=== PATIENT | female | born 1940 | race Caucasian/White ===

== ENCOUNTER 2024-01-29 00:46 | Inpatient (IN) | payer MEDICARE, BC, SELFPAY ==
[2024-01-29] VITALS (32 sets, daily range): BP systolic 105–164; BP diastolic 42–85; PULSE 79–105; RESP 16–38; TEMP 36.4–36.6; O2SAT 94–100
--- NOTE | ~2024-01-29 | CT_ITS ---
Clinical Indication: Trauma CT Scan of the Chest, Abdomen, and Pelvis, thoracic spine, and lumbar spine with Contrast: Technique: Contiguous sections were acquired throughout the chest, abdomen, and pelvis after intraven ous administration of 100 cc of Omnipaque 350. Dose reduction technique was used on this scan by uti moisesing automated exposure control and iterative reconstruction technique. The dose-length product (DL P) was 1238.34 mGy-cm. Chest/abdomen/pelvis Findings: There is no evidence of any significant mediastinal, hilar or axillary lymphadenopathy. The mediastin al soft tissues and vascular structures appear normal. There is no evidence of pleural or pericardial effusion. Suspected mild to moderate emphysema, although there is respiratory motion artifact which limits eval uation. No pulmonary nodule identified. The liver, spleen, pancreas, adrenals and kidneys are within normal limits. Calcified gallstones are present. There are atherosclerotic calcifications of the aorta. No lymphadenopathy. No bowel obstruction or bowel wall thickening. There is no evidence to suggest acute appendicitis. Urinary bladder is unremarkable. No pelvic mass seen. No ascites. Thoracolumbar spine findings: There is no fracture or subluxation of the thoracic or lumbar spines. Vertebral bodies maintain norm al height and line. There is moderate degenerative disc narrowing at the mid to lower thoracic spine. There is moderate degenerative disc narrowing at L3-L4, L4-L5. No significant disc bulge or herniation clearly identified in the thoracic spine. No thoracic spinal canal stenosis or cord compression evident. At L1-L2, there is minimal disc bulge without canal stenosis or definite neural foraminal narrowing. At L2-L3, there is mild disc bulge and mild facet arthropathy. No definite central canal stenosis. Pr obable moderate right neural foraminal narrowing and minimal left neural foraminal narrowing. L3-L4, there is mild disc bulge and mild facet arthropathy. There is probable mild central canal sten osis. There is moderate to advanced bilateral neural foraminal narrowing. At L4-L5, there is disc bulge and facet arthropathy with probable moderate to possibly severe central canal stenosis. There is advanced bilateral neural foraminal narrowing. At L5-S1, there is minimal disc bulge. No central canal stenosis. There is probable severe bilateral neural foraminal narrowing, right worse than left. Impression: No acute abnormality seen. Suspected moderate emphysema versus respiratory motion artifact. Cholelithiasis. Degenerative changes in the lumbar spine, as detailed above. Reviewed, dictated and finalized at location M. Impression: No acute abnormality seen. Suspected moderate emphysema versus respiratory motion artifact. Cholelithiasis. Degenerative changes in the lumbar spine, as detailed above.
--- NOTE | ~2024-01-29 | XR_ITS ---
Portable chest x-ray Comparison: None Clinical History: Status post fall Findings: Possible COPD. No acute consolidation or pleural effusion. No pneumothorax. Cardiomediast inal silhouette is prominent. Cervical spinal fixation hardware noted. Impression: Suspected COPD. Mild cardiomegaly. Reviewed, dictated and finalized at location . Impression: Suspected COPD. Mild cardiomegaly.
--- NOTE | ~2024-01-29 | XR_ITS ---
AP and lateral views of the right femur Clinical History: Pain Findings: No acute fracture or dislocation is seen. Osseous alignment is anatomic. Visualized joint s paces are grossly preserved. Soft tissues are unremarkable. Impression: Unremarkable right femoral radiographs. Reviewed, dictated and finalized at location M. Impression: Unremarkable right femoral radiographs.
--- NOTE | ~2024-01-29 | CT_ITS ---
Noncontrast CT scan of the cervical spine Technique: Multiple contiguous axial [address] images of the cervical spine were obtained and rec onstructed in 2D sagittal and coronal planes on the acquisition scanner. Dose reduction technique was used on this scan by utilizing automated exposure control, adjustment of the mA and/or kV according to patient size. The dose-length product (DLP) was 351.91 mGy-cm. Clinical History: Pain Findings: No fractures or dislocations. There is anterior fusion from C3 through C6. There are sever e degenerative disc narrowing at C2-C3 and C6-C7. There is fusion of the left C3-C4 facet joint. Ther e are moderate to advanced facet joint degenerative changes in the remainder of the cervical spine. T here is bilateral neural foraminal narrowing at C3-C4, C4-C5, C5-C6, and probably C6-C7. There is pro bable mild canal stenosis at C4-C5, C5-C6, and C6-C7. No prevertebral soft tissue swelling. Impression: No fracture or subluxation of the cervical spine. Anterior fusion from C3 through C6. Moderate to advanced degenerative spondylosis, as above. Reviewed, dictated and finalized at location . Impression: No fracture or subluxation of the cervical spine. Anterior fusion from C3 through C6. Moderate to advanced degenerative spondylosis, as above.
--- NOTE | ~2024-01-29 | XR_ITS ---
AP view of the pelvis CLINICAL HISTORY: Pain Findings: No acute fracture or dislocation is seen. Osseous alignment is anatomic. Bilateral hip and SI joint spaces are preserved. Soft tissues are unremarkable. Impression: No significant abnormality is seen. Reviewed, dictated and finalized at location M. Impression: No significant abnormality is seen.
--- NOTE | ~2024-01-29 | US_ITS ---
Limited Abdominal Sonogram: Real-time sonographic imaging of the right upper quadrant was performed. Clinical History: Cholelithiasis, evaluate for acute cholecystitis Findings: The liver appears normal with no evidence of mass lesion or bile duct dilatation. Main por hugh vein demonstrates normal direction of flow. The gallbladder is well distended, and demonstrates 1 8 mm gallstone at the gallbladder neck. No definite gallbladder wall thickening. The common bile duct measures 4 mm. The visualized pancreas, aorta, and IVC are unremarkable. Impression: Cholelithiasis. No definite gallbladder wall thickening. If there is persistent clinical concern for acute cholecystitis, consider HIDA scan. Reviewed, dictated and finalized at location . Impression: Cholelithiasis. No definite gallbladder wall thickening. If there is persistent clinical concern for acute cholecystitis, consider HIDA scan.
--- NOTE | ~2024-01-29 | XR_ITS ---
EXAMINATION: XR chest 1V portable DATE: 02/01/2024 10:02 INDICATION: Acute onset severe midsternal chest pain TECHNIQUE: frontal view of the chest was obtained. COMPARISON: Chest radiograph and CT dated 01/29/24 FINDINGS: Skinfold projects of the right upper lung zone. Mild reticular opacities at the bilateral lower lung zones no pleural effusion or pneumothorax.. The cardiomediastinal silhouette is within normal limits for AP technique. Multilevel plate and screw fixation for mid to lower cervical anterior spinal fusio n. IMPRESSION: 1. Mild reticular opacities at the bilateral lung bases most likely atelectasis with differential inc luding mild pulmonary edema or pneumonia. Reviewed, dictated and finalized at location A. IMPRESSION: 1. Mild reticular opacities at the bilateral lung bases most likely atelectasis with differential including mild pulmonary edema or pneumonia.
--- NOTE | ~2024-01-29 | MR_ITS ---
EXAMINATION: MR brain/brain stem wo/w con DATE: 01/30/2024 11:46 INDICATION: Altered mental status. TECHNIQUE: Magnetic resonance imaging (MRI) of the brain and brainstem was performed without and with 15 mL MultiHance intravenous contrast. COMPARISON: Head CT 01/29/2024 FINDINGS: There are scattered areas of nonspecific increased T2-weighted signal intensity in the cere bral white matter and seda. There is no intracranial hemorrhage, acute infarction, or abnormal intrac ranial mass lesion. The ventricles are normal in size. The paranasal sinuses are clear. There are lik karolyn changes of ocular lens replacement surgeries. There is a trace left mastoid effusion. IMPRESSION: 1. Extensive nonspecific cerebral white matter disease and pontine disease, which likely represents c hronic small vessel ischemic disease. Reviewed, dictated and finalized at location A. IMPRESSION: 1. Extensive nonspecific cerebral white matter disease and pontine disease, whi ch likely represents chronic small vessel ischemic disease.
--- NOTE | ~2024-01-29 | CT_ITS ---
CT brain wo con Ordering provider: Luisa Cronin MD History: 83 years Female with . altered mental status . Comparison: January 29, 2024 Technique: CT of the head without contrast. Radiation reduction technique utilized. DLP is 681 mGy-cm. FINDINGS: BRAIN PARENCHYMA AND CSF SPACES: Moderate leukoaraiosis and diffuse cortical atrophy. Moderate athero matous disease. Old lacunar infarct in the right basal ganglia. Possible old infarcts in the right an d left anterior limb of the internal capsule unchanged from previous examination.. No midline shift, mass effect or hemorrhage. The brain parenchyma and CSF spaces are otherwise normal. VISUALIZED PARANASAL SINUSES: Well aerated. MASTOIDS: Well aerated. BONES: The bones appear intact. SOFT TISSUES: Visualized nasopharynx is normal. Superficial soft tissues are normal. IMPRESSION: No acute intracranial findings. Reviewed, dictated and finalized at location A.
--- NOTE | ~2024-01-29 | CT_ITS ---
CT head without contrast Indication: Status post fall Technique: Serial scans were obtained through the brain without the administration of contrast. Dose reduction technique was used on this scan by utilizing automated exposure control and iterative recon struction technique. The dose-length product (DLP) was 681.00 mGy-cm. Findings: There is no evidence of intracranial hemorrhage, mass lesion, or acute infarct. The ventri cles and subarachnoid spaces are dilated, consistent with mild atrophy. Extensive low attenuation reg ions are seen within the periventricular white matter bilaterally, likely representing changes from c hronic microvascular ischemic disease. There is no evidence of edema, mass effect or midline shift. The visualized paranasal sinuses and mastoid air cells are clear. Impression: No intracranial hemorrhage, mass, or acute infarct. Atrophy and chronic white matter changes, as above. Reviewed, dictated and finalized at location . Impression: No intracranial hemorrhage, mass, or acute infarct. Atrophy and chronic white matter changes, as above.
--- NOTE | 2024-01-29 01:35 | ECG_ITS ---
Test Date: 2024-01-29 02:04:48 Measurements Intervals [place] Rate: 83 P: 64 DC: 209 QRS: 28 QRSD: 118 T: 92 QT: 370 QTc: 437 Interpretive Statements SINUS RHYTHM INCOMPLETE LEFT BUNDLE BRANCH BLOCK BORDERLINE R WAVE PROGRESSION, ANTERIOR LEADS BORDERLINE ST-T WAVE ABNORMALITY- LAT/HIGH LAT LEADS BASELINE ARTIFACT- I, III, AVR, AVL, AVF, V1, V5 ABNORMAL ECG No previous ECG available for comparison Electronically Signed On 01-29-2024 06:10:13 CDT by Dex Scherer D.O.
--- NOTE | 2024-01-29 01:37 | ED.HEATRA ---
HPI - Head Injury General Chief complaint: Head Injury Stated complaint: FALL, UNKNOWN LOC, HEAD LAC Time Seen by Provider: 01/29/24 00:54 History of Present Illness HPI Narrative: 83-year-old female with a past medical history of CHF, chronic hypertension, COPD and AFib. She is not present on blood thinners on review of the medications that she was sent in from [facility]. Patient had a ground level mechanical fall today while she was trying to get out of bed. Unclear if she lost consciousness but when EMS arrived she was noted to be saturating low complaining of some pain in her head and neck. She has a posterior scalp hematoma with a small laceration. Was saturating poorly initially placed on oxygen which improved to 100%. Presently she is alert oriented times 2-3 which is her baseline on review by staff paperwork from her facility. She is complaining of neck pain, back pain, abdominal pain, right hip pain. Denies any chest pain or headache, vision changes. No weakness and neuropathy. Following all commands and answer all questions appropriately. Related Data Allergies Allergy/AdvReac Type Severity Reaction Status Date / Time No Known Allergies Allergy Verified 01/29/24 02:31 Review of Systems Review of Systems: As reviewed above in HPI Exam Narrative: GENERAL: [Well-appearing, well-nourished, and in no acute distress.] HEAD: Normocephalic, posterior scalp hematoma evident with a minor 1 cm laceration in the superficial tissues. No significant wound dehiscence or active bleeding. EYES: [PERRLA and EOMI.] ENT: Nares clear, no rhinorrhea or epistaxis. Mucous membranes moist. NECK: Supple. CHEST: Clear to auscultation, minor tachypnea but no wheezing, rhonchi. HEART: [Regular rate and rhythm]. No murmur heard. 2+ peripheral pulses throughout all extremities. ABDOMEN: [Soft, nondistended], tender to palpation, [No rigidity or guarding] EXTREMITIES: Normal range of motion. [No edema.] Superficial bruises appearing old throughout both extremities upper and lower SKIN: Warm, dry, no rash. No CT or L-spine tenderness NEURO: [No focal deficits]. Alert and oriented times 2-3 at baseline. Symmetric strength and sensation, no facial asymmetry Course Vital Signs Vital signs: Vital Signs Temperature 36.6 C 01/29/24 00:52 Pulse Rate 87 01/29/24 00:52 Respiratory Rate 22 H 01/29/24 00:52 Blood Pressure 164/83 H 01/29/24 00:52 Pulse Oximetry 100 01/29/24 00:52 Oxygen Delivery Room Air 01/29/24 00:52 Temperature 36.6 C 01/29/24 00:52 Pulse Rate 85 01/29/24 05:40 Respiratory Rate 22 H 01/29/24 05:40 Blood Pressure 163/85 H 01/29/24 05:40 Pulse Oximetry 100 01/29/24 05:40 Oxygen Delivery BiPAP 01/29/24 05:10 Procedures Laceration Laceration 1: Date: 01/29/24 Time: 02:24 Site: scalp Side (If applicable): right Size (cm): 1 Description: linear Local Anesthetic: none Pre-repair: irrigated ====== Skin Level ====== Skin layer closed with: dermabond ====== Subcutaneous Layer ====== ====== Muscle Layer ====== ====== Tendon Layer ====== MDM - Head Injury MDM Narrative Medical decision making narrative: 83-year-old female presenting for an unwitnessed fall. Patient states that she fell out of bed while trying to get out of bed. She hit her head but is not sure if she lost consciousness. Per report by EMS patient was apparently saturating poorly on room air. She has a history of COPD, CHF and chronic hypertension. She also has a history of AFib but not on a blood thinner medications. Presently she is awake alert oriented at her baseline which is 2-3. Patient is complaining of abdomen, neck, right hip pain. She appears to be tachypneic, but has normal reassuring vital signs. Presently not hypoxic or feverish or having blood pressure concerns across from chronic hypertension. Examinatio
[2024-01-29] MEDS: LACTATED RINGERS 1,000 ML 999 ML IV CONT (02:32)
[2024-01-29] MEDS: MORPHINE SULFATE (*CRX) 4 MG/ML INJ IV PUSH (02:32)
[2024-01-29 02:46] LABS: Basophils Absolute Auto 0.1 K/mm3 (0.0-0.1); Basophils Percent Auto 0.3 % (0.2-1.2); Eosinophils Absolute Auto 0.5 K/mm3 (0-0.3); Eosinophils Percent Auto 2.4 % (0-4.4); Hematocrit 31.4 % (37.0-47.0); Hemoglobin 9.8 g/dL (12.0-15.0); Immature Granulocyte Absolute 0.51 K/mm3 (0.00-0.031); Immature Granulocyte Percent A 2.7 % (0-0.5); Lymphocytes Absolute Auto 1.44 K/mm3 (0.9-3.2); Lymphocytes Percent Auto 7.6 % (18.3-44.2); Mean Corpuscular HGB Conc 31.2 g/dl (32-36); Mean Corpuscular Hemoglobin 32.5 pg (26-34); Mean Platelet Volume 10.3 fl (7.4-10.4); Monocytes Absolute Auto 1.2 K/mm3 (0.1-0.6); Monocytes Percent Auto 6.3 % (2.6-8.5); Neutrophils Absolute Auto 15.3 K/mm3 (1.3-6.7); Neutrophils Percent Auto 80.7 % (45.5-73.1); Platelet Count Result 297 k/mm3 (150-375); Red Blood Count 3.02 M/mm3 (4.2-5.4)
[2024-01-29] MEDS: TETANUS,DIPHTHERIA,AC PERTUSSIS ADULT (0.5 ML) BOOSTRIX IM (02:50)
[2024-01-29] MEDS: ONDANSETRON INJ 4 MG/2 ML VIAL IV PUSH (02:51)
[2024-01-29 02:57] LABS: INR 0.9; Prothrombin Time 12.8 Seconds (11.1-14.7)
[2024-01-29 02:58] LABS: Partial Thromboplastin Time 21.2 Seconds (22.3-36.8)
[2024-01-29 03:09] LABS: Blood Urea Nitrogen 17 mg/dL (7-17); Carbon Dioxide > 40 mmol/L (22-30); Chloride 89 mmol/L (98-107); Estimated CRCL calculation 40 ml/min; Estimated Glomerular Filt Rate 60; Glucose 123 mg/dL (65-110); Magnesium 2.5 mg/dL (1.6-2.3); Potassium 4.1 mmol/L (3.4-5.0); Sodium 133 mmol/L (137-145)
[2024-01-29] MEDS: IPRATROPIUM BR 0.02% INH SOLN 0.5 MG/2.5 ML VIAL 1 MG INHALATION (05:10)
[2024-01-29] MEDS: ALBUTEROL SULFATE NEB 2.5 MG/3 ML INH 10 MG INHALATION (05:10)
[2024-01-29 05:38] LABS: Add Urine Microscopic? NO; Appearance Urine Clear (Clear); Bilirubin Urine Negative (Negative); Blood Urine Negative (Negative); Color Urine Yellow (Yellow); Glucose Urine UA Negative (Negative); Ketones Urine Negative (Negative); Leukocyte Esterase Ur Negative LEU/UL (Negative); Nitrate Urine Negative (Negative); Protein Urine Negative (Negative); Specific Grav Ur 1.021 (1.001-1.035); Urobilinogen Urine 0.2 mg/dL (<2.0); pH Urine 8.5 (5.0-9.0)
[2024-01-29] MEDS: methylPREDNISolone SOD SUCC 125 MG VIAL IV PUSH (05:44)
[2024-01-29 05:47] LABS: Alveolar/Arterial O2 Gradient 94.6 mmHg; Base Excess ABG 9.7 mEq/l (+/-2.0); Carboxyhemoglobin 0.4 % THb (0-2.0); Fractional Inspired Oxygen 35 %; HCO3 ABG 37.4 mEq/l (22.0-26.0); Oxygen Saturation ABG 93.5 % (95.0-100.0); Oxyhemoglobin 93.4 % THb (90.0-100.0); PO2 ABG 73.8 mmHg (80.0-100.0); PO2 FiO2 Ratio Arterial Blood 2.11 %; Reduced Hemoglobin 6.2 %THb (0-5.0); Total Hemoglobin 10.6 g/dL (12.0-18.0); pH ABG 7.347 (7.350-7.450)
[2024-01-29 05:48] LABS: Device NON-INVASIVE VENT; PCO2 ABG 69.8 mmHg (35.0-45.0); Site Drawn RIGHT BRACHIAL
[2024-01-29 05:50] LABS: Non-Invasive Expiratory Pressure 6 CMH2O; Non-Invasive Inspiratory Pressure 12 CMH2O; Non-Invasive Vent Rate 16 /MIN
--- NOTE | 2024-01-29 06:13 | PC.NURSE ---
Granddaughters (one POA) at bedside. Family reports pt was at her baseline of aox4 at 5pm and 7pm night of 01/27. Family also reports pt has hx of COPD and to be on 3L NC at all times.
--- NOTE | 2024-01-29 07:18 | ADMGEN ---
0658: This patient, Lyndsey Jensen, was admitted to IMU Room 202-01. Patient/family oriented to hospital policies and general routines including ID bracelet, bed and alarms, visiting hours, pain management, procedures, bathroom and other care routines, personal items, smoking policy, room service/diet, and visiting hours. Information on how to activate the Rapid Response Team has been discussed. Patient/Family are encouraged to report perceived risks to care and to ask questions if they do not understand what they are told or what they should do.
--- NOTE | 2024-01-29 07:43 | PM.IMHP ---
H&P: HPI History of Present Illness Date/Time: 01/29/24 07:43 Chief Complaint: Fall Narrative: Patient is confused, history is taken from patient and ER physician 83-year-old female with a past medical history of CHF, chronic hypertension, COPD and AFib not on blood thinner, brought to ED from [facility] because of fall. Patient fell on the floor when patient was moving out of bed, patient sustained neck pain, headache. Patient also has some abdomen pain, back pain and hip pain Patient was found having head bleeding. Patient did not loss consciousness. EMS was called, patient was brought to ED for evaluation treatment. Upon arrival in the ED, patient was found have occipital scalp hematoma. Upon arrival in ED, patient was afebrile, blood pressure stable, patient was placed on BiPAP. Labs showed leukocytosis 19,000, hemoglobin 9.8, sodium 133, bicarbonate 40, ABG shows pH 7.34, pCO2 69.8, PO2 73.[address] cervical spine shows no fracture or subluxation CT chest abdomen pelvis shows moderate emphysema, gallstone. X-ray shows mild cardiomegaly in a suspected COPD . Review of Systems Review of Systems: ROS negative except above PMFSH Social History Social History Smoking packs per day: 2 Smoking cigarettes per day: 40.0 Years smoked: 15 Smoking pack-years: 30.00 Smoking status: Former smoker Spiritual care concerns: No Meds Home Medications and Allergies Home Medications Medication Instructions Recorded Confirmed Type albuterol sulfate 90 mcg/actuation 2 puff inhalation Q4H 01/29/24 01/29/24 History aerosol inhaler allopurinol 100 mg tablet 100 mg PO DAILY 01/29/24 01/29/24 History duloxetine 30 mg capsule,delayed 30 mg PO DAILY 01/29/24 01/29/24 History release ferrous gluconate 324 mg (38 mg 324 mg PO DAILY 01/29/24 01/29/24 History iron) tablet furosemide 20 mg tablet 20 mg PO DAILY 01/29/24 01/29/24 History levalbuterol HCl 0.31 mg/3 mL 3 mg inhalation Q8H PRN sob 01/29/24 01/29/24 History solution for nebulization lorazepam 1 mg tablet 1 mg PO BID PRN Anxiety 01/29/24 01/29/24 History metoprolol succinate 25 mg 25 mg PO POST-TRANSFUSION 01/29/24 01/29/24 History tablet,extended release 24 hr roflumilast 250 mcg tablet 250 mcg PO DAILY 01/29/24 01/29/24 History sennosides 8.6 mg tablet (senna) 8.6 mg PO BID PRN Constipation 01/29/24 01/29/24 History umeclidinium 62.5 mcg-vilanterol 1 inh inhalation DAILY 01/29/24 01/29/24 History 25 mcg/actuation powdr for inhalation (Anoro Ellipta) Allergies Allergy/AdvReac Type Severity Reaction Status Date / Time sulfamethoxazole Allergy Unknown Verified 01/29/24 06:48 [From Bactrim] trimethoprim [From Bactrim] Allergy Unknown Verified 01/29/24 06:48 Vital Signs Vital Signs - 24 hr 01/29/24 00:52 01/29/24 05:10 01/29/24 05:10 Temperature 97.9 F Pulse Rate 87 89 88 Respiratory Rate 22 H 23 H 23 H Blood Pressure 164/83 H Pulse Oximetry 100 96 Oxygen Delivery Room Air BiPAP Fraction of Inspired Oxygen 01/29/24 05:40 01/29/24 06:49 01/29/24 06:58 Temperature 97.8 F Pulse Rate 85 88 89 Respiratory Rate 22 H 16 23 H Blood Pressure 163/85 H 138/71 148/63 H Pulse Oximetry 100 98 100 Oxygen Delivery Fraction of Inspired Oxygen 01/29/24 07:00 01/29/24 07:00 01/29/24 07:37 Temperature Pulse Rate 90 86 Respiratory Rate 22 H Blood Pressure Pulse Oximetry 96 96 Oxygen Delivery BiPAP BiPAP Fraction of Inspired Oxygen 35 01/29/24 06:57 Temperature Pulse Rate 88 Respiratory Rate 16 Blood Pressure 138/71 Pulse Oximetry 98 Oxygen Delivery Fraction of Inspired Oxygen Exam Narrative: GENERAL: Pleasant, in no acute distress. Well-nourished. - EYES: EOMI. Anicteric. - HENT: Moist mucous membranes. Occipital hematoma - LUNGS: Distant breath sound bilaterally, no wheezing, rhonchi, or rales.
[2024-01-29 08:00] LABS: Glucose Point of Care 113 mg/dl (65-105)
[2024-01-29 08:00] LABS: Glucose Point of Care 121 mg/dl (65-105)
[2024-01-29 08:54] LABS: Iron 51 ug/dL (37-170)
[2024-01-29 09:04] LABS: Percent Iron Saturation 21 % (20-50)
[2024-01-29 09:34] LABS: Alveolar/Arterial O2 Gradient 108.7 mmHg; Base Excess ABG 8.6 mEq/l (+/-2.0); Fractional Inspired Oxygen 35 %; HCO3 ABG 35.2 mEq/l (22.0-26.0); Oxygen Content ABG 14.1 %vol (16.0-22.0); Oxygen Saturation ABG 93.8 % (95.0-100.0); Oxyhemoglobin 93.4 % THb (90.0-100.0); PCO2 ABG 59.8 mmHg (35.0-45.0); PO2 ABG 71.3 mmHg (80.0-100.0); PO2 FiO2 Ratio Arterial Blood 2.04 %; Total Hemoglobin 10.7 g/dL (12.0-18.0); pH ABG 7.388 (7.350-7.450)
[2024-01-29 09:35] LABS: Site Drawn RIGHT BRACHIAL
[2024-01-29 09:36] LABS: Device NON-INVASIVE VENT; Non-Invasive Expiratory Pressure 6 CMH2O; Non-Invasive Inspiratory Pressure 12 CMH2O; Non-Invasive Vent Rate 16 /MIN
[2024-01-29] MEDS: levoFLOXacin 750 MG/D5W 150 ML 750 MG/150 ML BAG 100 MG IVPB (09:54)
[2024-01-29 10:37] LABS: Procalcitonin 0.4 ng/mL
[2024-01-29 11:37] LABS: Glucose Point of Care 159 mg/dl (65-105)
[2024-01-29] MEDS: methylPREDNISolone SOD SUCC 125 MG VIAL 60 MG IV PUSH ×2 (13:09→17:32)
[2024-01-29] MEDS: ALBUTEROL SULFATE NEB 2.5 MG/3 ML INH INHALATION ×2 (13:57→19:53)
--- NOTE | 2024-01-29 15:13 | PCPTNOTE ---
PT evaluation attempted, Nursing reports that pt is unable to be aroused and therefore not appropriate to be seen by therapy at this time.
[2024-01-29 15:32] LABS: Glucose Point of Care 124 mg/dl (65-105)
[2024-01-29] MEDS: LORazepam (*CRX) 1 MG TABLET PO (16:48)
[2024-01-29] MEDS: HYDROmorphone HCL INJ (*CRX) 1 MG/ML SYR 0.5 MG IV PUSH (18:56)
[2024-01-30] VITALS (27 sets, daily range): BP systolic 123–142; BP diastolic 50–58; PULSE 72–104; RESP 17–34; TEMP 36.1–36.8; O2SAT 96–100
[2024-01-30 00:05] LABS: Glucose Point of Care 133 mg/dl (65-105)
[2024-01-30] MEDS: methylPREDNISolone SOD SUCC 125 MG VIAL 60 MG IV PUSH ×3 (00:59→13:11)
[2024-01-30] MEDS: ALBUTEROL SULFATE NEB 2.5 MG/3 ML INH INHALATION ×4 (02:07→20:13)
[2024-01-30] MEDS: UMECLIDINIUM/VILANTEROL 62.5-25 MCG ELLIPTA 1 PUFF INHALATION (07:10)
--- NOTE | 2024-01-30 08:34 | PCPTNOTE ---
Pt is being monitored for tolerance to MRI testing, Nursing reports to withhold therapy at this time due to pt's poor tolerance to activity. Will check again later in the day.
[2024-01-30] MEDS: FERROUS GLUCONATE 324 MG TABLET PO (08:35)
[2024-01-30 09:16] LABS: Basophils Percent Auto 0.1 % (0.2-1.2); Hematocrit 31.7 % (37.0-47.0); Hemoglobin 9.9 g/dL (12.0-15.0); Immature Granulocyte Absolute 0.17 K/mm3 (0.00-0.031); Immature Granulocyte Percent A 1.1 % (0-0.5); Lymphocytes Absolute Auto 0.61 K/mm3 (0.9-3.2); Mean Corpuscular HGB Conc 31.2 g/dl (32-36); Mean Corpuscular Hemoglobin 32.6 pg (26-34); Mean Corpuscular Volume 104.3 fl (80-100); Mean Platelet Volume 10.6 fl (7.4-10.4); Monocytes Absolute Auto 0.3 K/mm3 (0.1-0.6); Monocytes Percent Auto 1.6 % (2.6-8.5); Neutrophils Absolute Auto 14.3 K/mm3 (1.3-6.7); Neutrophils Percent Auto 93.2 % (45.5-73.1); Platelet Count Result 286 k/mm3 (150-375); Red Blood Count 3.04 M/mm3 (4.2-5.4); Red Cell Distribution Width 15.1 % (11.5-14.5); White Blood Count 15.3 K/mm3 (4.5-10.0)
[2024-01-30 09:25] LABS: NT Pro B Type Natriuretic Pept 836 pg/mL (19.9-100)
[2024-01-30 09:32] LABS: Alveolar/Arterial O2 Gradient 86.6 mmHg; Base Excess ABG 8.3 mEq/l (+/-2.0); Fractional Inspired Oxygen 30 %; HCO3 ABG 32.1 mEq/l (22.0-26.0); Oxygen Content ABG 13.9 %vol (16.0-22.0); Oxygen Saturation ABG 96.6 % (95.0-100.0); PCO2 ABG 41.2 mmHg (35.0-45.0); PO2 ABG 78.9 mmHg (80.0-100.0); PO2 FiO2 Ratio Arterial Blood 2.63 %; Total Hemoglobin 10.2 g/dL (12.0-18.0)
[2024-01-30 09:33] LABS: Device BIPAP; Modified Allen's Test Pass; Site Drawn RIGHT RADIAL; pH ABG 7.509 (7.350-7.450)
[2024-01-30 09:34] LABS: Expiratory Pressure 6 cmH2O; Inspiratory Pressure 12 cmH2O
[2024-01-30 09:43] LABS: Albumin Level 4.1 g/dL (3.5-5.1); Alkaline Phosphatase 62 U/L (38-126); Anion Gap 11 mmol/L (4-12); Aspartate Amino Transferase 33 U/L (14-36); Bilirubin,Total 0.4 mg/dL (0.2-1.3); Blood Urea Nitrogen 27 mg/dL (7-17); Calcium 9.4 mg/dL (8.4-10.2); Carbon Dioxide 34 mmol/L (22-30); Chloride 88 mmol/L (98-107); Estimated CRCL calculation 36 ml/min; Estimated Glomerular Filt Rate 53; Glucose 126 mg/dL (65-110); Magnesium 2.5 mg/dL (1.6-2.3); Phosphorus 4.3 mg/dL (2.5-4.5); Potassium 4.7 mmol/L (3.4-5.0); Sodium 133 mmol/L (137-145)
[2024-01-30 09:48] LABS: Alanine Aminotransferase 32 U/L (6-35)
[2024-01-30 12:31] LABS: Glucose Point of Care 138 mg/dl (65-105)
--- NOTE | 2024-01-30 14:49 | PM.CNPUL ---
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 Etiology of COPD exacerbation is not quite clear. The patient seems to be responding to current regimen of IV steroids and BiPAP support. Currently she is fully awake not complaining of shortness of breath at rest and her respiratory exam just showing distant breath sounds without wheezing. On chest CT she had no pulmonary emboli or infiltrates that would indicate lower respiratory tract infection. Plan: Will continue with BiPAP support at night and p.r.n. during the day continue with short-acting bronchodilators and and her maintenance bronchodilators as prescribed. I switch patient to oral prednisone starting in a.m.. Will continue to follow the patient along with you. (2) COPD exacerbation: Code(s): J44.1 - Chronic obstructive pulmonary disease with (acute) exacerbation Status: Acute (3) Paroxysmal A-fib: Code(s): I48.0 - Paroxysmal atrial fibrillation Status: Acute (4) Fall: Code(s): W19.XXXA - Unspecified fall, initial encounter Status: Acute History of Present Illness History of Present Illness Consult date: 01/30/24 Chief complaint: acute on chronic hypercapnic respiratory failure Narrative: This 83-year-old female with a history of COPD was brought in after she fell at the alf. The patient stated that she has had COPD for many years and is followed by the pulmonology services at another institution. In addition to COPD, she has a history of congestive heart failure, hypertension, and atrial fibrillation. When evaluated by EMS, she was found to have low oxygen levels. In addition, the patient was complaining of head and neck pain. She had sustained a small laceration on her scalp. She had no fevers or chills. The patient was found to have acute on chronic hypercapnic respiratory failure, with initial blood gases while receiving BiPAP support showing a pH of 7.34, pCO2 of 70, and PO2 of 74. She has COPD, and because of shortness of breath in the alf, she was started on BiPAP support the day before she was brought into the emergency room. The patient has been on home oxygen but not on a home ventilator. She has been using a LABA/LAMA inhaler and short-acting bronchodilators. Chest CT showed no pulmonary embolism. There was evidence of emphysema but no evidence of a lower respiratory tract infection. The patient has been on treatment with IV steroids. Earlier today, repeat blood gases showed improvement of hypercapnic respiratory failure, and the patient was taken off the BiPAP support. Four hours later, the patient remained off the BiPAP with no new respiratory symptoms. She appears fully awake and is not complaining of shortness of breath at rest. She admitted having shortness of breath with activities. The patient is a poor historian and has no clear recollection of the events that prompted the use of BiPAP support in the alf. Review of Systems Review of Systems: All systems reviewed & are unremarkable except as noted in HPI and below (HPI and below) [facility] Social History Social History Smoking packs per day: 2 Smoking cigarettes per day: 40.0 Years smoked: 15 Smoking pack-years: 30.00 Smoking status: Former smoker Spiritual care concerns: No Meds Home Medications and Allergies Home Medications Medication Instructions Recorded Confirmed Type albuterol sulfate 90 mcg/actuation 2 puff inhalation Q4H 01/29/24 01/29/24 History aerosol inhaler allopurinol 100 mg tablet 100 mg PO DAILY 01/29/24
--- NOTE | 2024-01-30 16:46 | PM.IMPN ---
Progress Note: A&P Assessment and Plan (1) Acute and chronic respiratory failure with hypercapnia: Code(s): J96.22 - Acute and chronic respiratory failure with hypercapnia Status: Acute Assessment and Plan: Patient found to have acute on chronic respiratory failure, possible COPD exacerbation. ABG on admission showing 7.35/70/74 on BiPAP. Chest x-ray showing COPD and CMG. Chest CT shows mild to moderate emphysema and no PE. WBC 19K. PCT 0.4. UA clear. BCx NGTD. Patient started on BiPAP. Soul-Medrol, DuoNebs andLevaquin started. Pulmonary consult and appreciate their input. Wean BiPAP to night, naps and prn use. Back down to baseline O2 requirement at 2L. Speech therpay to assess for dysphagia (2) SIRS (systemic inflammatory response syndrome): Code(s): R65.10 - Systemic inflammatory response syndrome (SIRS) of non-infectious origin without acute organ dysfunction Status: Acute Assessment and Plan: Noted with leukocytosis, acute resp failure and tachypnea. Related to above. No PNA or UTI. Levaquin for acute bronchitis. (3) Fall: Code(s): W19.XXXA - Unspecified fall, initial encounter Status: Acute Assessment and Plan: Patient brought in after she fell out of bed. She sustained head injury with posterior scalp hematoma and small laceration that was closed with dermabond. Cervical spine CT showing no fracture or subluxation, anterior fusion of C3-C6 and moderate to advanced spondylosis. Lumber spine CT showing degenerative changes in the lumbar spine with probably moderate-sever central canal stenosis at L4-5. CT head showing no acute findings. 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 Start PT/OT (4) COPD exacerbation: Code(s): J44.1 - Chronic obstructive pulmonary disease with (acute) exacerbation Status: Acute Assessment and Plan: As above Continue home medication of Anoro Ellipta; resume roflumilast when okay with pulmonary (5) Gallstone: Code(s): K80.20 - Calculus of gallbladder without cholecystitis without obstruction Status: Acute Assessment and Plan: There is a 18mm gallstone in the gallbladder neck. No symptoms. Add low fat diet (6) Chronic anemia: Code(s): D64.9 - Anemia, unspecified Status: Acute Assessment and Plan: Macrocytic anemia noted. Hgb low but stable. Iron studies consistent with anemia of chronic disease No liver or spleen abnormalities Ferrous gluconate resumed Check B12/folate (7) Paroxysmal A-fib: Code(s): I48.0 - Paroxysmal atrial fibrillation Status: Acute Assessment and Plan: Patient with pAFib. Not on rate controlling agents of anticoagulation. (8) Spinal stenosis: Code(s): M48.00 - Spinal stenosis, site unspecified Status: Acute Assessment and Plan: Noted by Lumbar CT at L4-5. PTOT ordered (9) Laceration of scalp: Code(s): S01.01XA - Laceration without foreign body of scalp, initial encounter Status: Acute Assessment and Plan: As above (10) Closed head injury: Code(s): S09.90XA - Unspecified injury of head, initial encounter Status: Acute Assessment and Plan: As above Plan Acute encephalopathy on admission. Possible due to CO2 retention and brain concussion due to the fall. Patient is more awake and alert. CT shows no fracture or acute intracranial issue. Neuro check DVT prophylaxis - Lovenox Code status - DNR Subjective Date/time seen: 01/30/24 16:46 Interval history: 83yo female with chronic respiratory failure, COPD and AFib here for fall and found to have respiratory failure. SOB is better. She could not tolerate BiPAP at home. She was trying BiPAP again at the facility but fell out of bed trying to take the mask off. She normally wears 2L around the clock and up to 3L with exertion. No CP. Cough th
[2024-01-30] MEDS: LORazepam (*CRX) 1 MG TABLET PO ×2 (18:19→23:56)
[2024-01-30] MEDS: ENOXAPARIN 40 MG/0.4 ML SYRINGE SUB-Q (18:19)
[2024-01-31] VITALS (24 sets, daily range): BP systolic 112–138; BP diastolic 53–68; PULSE 67–119; RESP 18–24; TEMP 36.3–36.7; O2SAT 96–100
[2024-01-31] MEDS: ALBUTEROL SULFATE NEB 2.5 MG/3 ML INH INHALATION ×4 (01:46→20:12)
[2024-01-31 05:30] LABS: Basophils Percent Auto 0.1 % (0.2-1.2); Hemoglobin 8.6 g/dL (12.0-15.0); Immature Granulocyte Absolute 0.14 K/mm3 (0.00-0.031); Lymphocytes Percent Auto 9.7 % (18.3-44.2); Mean Corpuscular HGB Conc 30.7 g/dl (32-36); Mean Corpuscular Hemoglobin 31.4 pg (26-34); Mean Corpuscular Volume 102.2 fl (80-100); Mean Platelet Volume 10.7 fl (7.4-10.4); Monocytes Absolute Auto 1.2 K/mm3 (0.1-0.6); Monocytes Percent Auto 8.7 % (2.6-8.5); Neutrophils Absolute Auto 10.8 K/mm3 (1.3-6.7); Neutrophils Percent Auto 80.5 % (45.5-73.1); Platelet Count Result 255 k/mm3 (150-375); Red Blood Count 2.74 M/mm3 (4.2-5.4); Red Cell Distribution Width 15.3 % (11.5-14.5); White Blood Count 13.5 K/mm3 (4.5-10.0)
[2024-01-31 05:42] LABS: Anion Gap 4 mmol/L (4-12); Blood Urea Nitrogen 28 mg/dL (7-17); Carbon Dioxide 39 mmol/L (22-30); Chloride 92 mmol/L (98-107); Estimated CRCL calculation 35 ml/min; Estimated Glomerular Filt Rate 53; Glucose 102 mg/dL (65-110); Sodium 135 mmol/L (137-145)
[2024-01-31 06:45] LABS: Folic Acid 4.7 ng/mL (2.76->20)
[2024-01-31] MEDS: UMECLIDINIUM/VILANTEROL 62.5-25 MCG ELLIPTA 1 PUFF INHALATION (07:49)
[2024-01-31] MEDS: predniSONE 20 MG, predniSONE 10 MG 30 MG PO (08:30)
[2024-01-31] MEDS: FERROUS GLUCONATE 324 MG TABLET PO (08:30)
[2024-01-31] MEDS: ENOXAPARIN 40 MG/0.4 ML SYRINGE SUB-Q (08:30)
[2024-01-31] MEDS: levoFLOXacin 750 MG/D5W 150 ML 750 MG/150 ML BAG 100 MG IVPB (08:31)
--- NOTE | 2024-01-31 10:15 | PCSTNOTE ---
Please refer to the Bedside Swallow Evaluation in the EMR. Please note, silent aspiration cannot be ruled out at bedside.
[2024-01-31] MEDS: SENNOSIDES 8.6 MG TABLET PO (10:19)
--- NOTE | 2024-01-31 12:34 | PM.PNPUL ---
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 The etiology of the COPD exacerbation is not quite clear. The patient has responded to treatment with IV steroids and BiPAP support. She has been tolerating supplemental oxygen via nasal cannula during the day and BiPAP support at night. On physical exam, she has distant breath sounds but no wheezing. Given her advanced COPD and hypercapnic hypoxemic respiratory failure, for which she is only receiving supplemental oxygen and not BiPAP support, the patient may benefit from home ventilatory support via a home ventilator. This approach could potentially offer several advantages over BiPAP, as it is designed to provide more tailored support for patients with chronic respiratory failure, and can also help improve patient comfort and minimize the rate of hospitalizations due to exacerbations. Plan: Proceed with home ventilatory support. Continue the current regimen of short-acting bronchodilators, oral steroids, and DVT prophylaxis. Continue to follow the patient along with you. (3) Paroxysmal A-fib: Code(s): I48.0 - Paroxysmal atrial fibrillation Status: Acute Subjective Date/time seen: 01/31/24 12:34 Interval history: Patient has no new respiratory symptoms. Use BiPAP support last night. Currently on just supplemental oxygen. Shortness of breath unchanged over the last 24 hours. No cough or wheezing. Review of Systems Review of Systems: All systems reviewed & are unremarkable except as noted in HPI and below ( HPI and below) Exam Narrative: GENERAL APPEARANCE: Well developed, well nourished, alert and cooperative, and appears to be in no acute distress while on supplemental oxygen via nasal cannula SKIN: Inspection of the skin reveals no rashes, ulcerations or petechiae. HEENT: Sclerae anicteric and conjunctivae pink and moist. Extraocular movements were intact and pupils were equal, round, and reactive to light. The oral mucosa, hard and soft palate, tongue and posterior pharynx were normal. NECK: Supple. There was no thyroid enlargement, and no tenderness, or masses were felt. CHEST: Normal AP diameter and normal contour without any kyphoscoliosis. LUNGS: Somewhat distant breath sounds no wheezing CARDIAC: There was a regular rate and rhythm without any murmurs, gallops, rubs. ABDOMEN: Soft and nontender with normal bowel sounds. There was no organomegaly. LYMPH NODES: No lymphadenopathy was appreciated in the neck. EXTREMITIES: No cyanosis, clubbing or edema. NEUROLOGIC: Alert and oriented x 3. Normal affect. Objective Data Vital Signs Vital Signs: Vital Signs - 24 hr 01/30/24 14:00 01/30/24 14:22 01/30/24 13:05 Temperature Pulse Rate 104 H 94 Respiratory Rate 18 Blood Pressure Pulse Oximetry Oxygen Delivery Nasal Cannula Oxygen Flow Rate 3 Fraction of Inspired Oxygen 01/30/24 13:15 01/30/24 16:00 01/30/24 16:00 Temperature 36.1 C L Pulse Rate 92 92 88 Respiratory Rate 18 22 H Blood Pressure 124/54 L Pulse Oximetry 96 Oxygen Delivery Oxygen Flow Rate Fraction of Inspired Oxygen 01/30/24 16:00 01/30/24 18:00 01/30/24 19:46 Temperature 36.6 C Pulse Rate 91 88 Respiratory Rate Blood Pressure 127/58 L Pulse Oximetry 96 96 Oxygen Delivery Nasal Cannula Oxygen Flow Rate 2 Fraction of Inspired Oxygen 01/30/24 20:13 01/30/24 20:13 01/30/24 20:21 Temperature Pulse Rate 86 Respiratory Rate 18 Blood
[2024-01-31] MEDS: LORazepam (*CRX) 1 MG TABLET PO ×2 (14:33→21:38)
--- NOTE | 2024-01-31 15:24 | PM.IMPN ---
Progress Note: A&P Assessment and Plan (1) Acute and chronic respiratory failure with hypercapnia: Code(s): J96.22 - Acute and chronic respiratory failure with hypercapnia Status: Acute Assessment and Plan: Patient found to have acute on chronic respiratory failure from COPD exacerbation. ABG on admission showing 7.35/70/74 on BiPAP. Chest x-ray showing COPD and CMG. Chest CT shows mild to moderate emphysema and no PE. WBC 19K. PCT 0.4. UA clear. BCx NGTD. Patient started on BiPAP. Soul-Medrol, DuoNebs and Levaquin started. Pulmonary consult and appreciate their input. Weaned BiPAP to night, naps and prn use. Back down to baseline O2 requirement at 2L. Speech therapy assessed patient and there were no concerns. Weaned to oral Prednisone Discharge planning (2) SIRS (systemic inflammatory response syndrome): Code(s): R65.10 - Systemic inflammatory response syndrome (SIRS) of non-infectious origin without acute organ dysfunction Status: Acute Assessment and Plan: Noted with leukocytosis, acute resp failure and tachypnea. Related to above. No PNA or UTI. Levaquin for acute bronchitis. (3) Fall: Code(s): W19.XXXA - Unspecified fall, initial encounter Status: Acute Assessment and Plan: Patient brought in after she fell out of bed. She sustained head injury with posterior scalp hematoma and small laceration that was closed with dermabond. Cervical spine CT showing no fracture or subluxation, anterior fusion of C3-C6 and moderate to advanced spondylosis. Lumber spine CT showing degenerative changes in the lumbar spine with probably moderate-sever central canal stenosis at L4-5. CT head showing no acute findings. 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 Continue PT/OT (4) COPD exacerbation: Code(s): J44.1 - Chronic obstructive pulmonary disease with (acute) exacerbation Status: Acute Assessment and Plan: As above Continue home medication of Anoro Ellipta (5) Gallstone: Code(s): K80.20 - Calculus of gallbladder without cholecystitis without obstruction Status: Acute Assessment and Plan: There is a 18mm gallstone in the gallbladder neck. No symptoms. Continue low fat diet (6) Chronic anemia: Code(s): D64.9 - Anemia, unspecified Status: Acute Assessment and Plan: Macrocytic anemia noted. Hgb low but stable. Iron studies consistent with anemia of chronic disease No liver or spleen abnormalities. B12/folate normal Ferrous gluconate resumed (7) Paroxysmal A-fib: Code(s): I48.0 - Paroxysmal atrial fibrillation Status: Acute Assessment and Plan: Patient with pAFib. Not on rate controlling agents of anticoagulation. No evidence of recurrence by tele. (8) Spinal stenosis: Code(s): M48.00 - Spinal stenosis, site unspecified Status: Acute Assessment and Plan: Noted by Lumbar CT at L4-5. PTOT ordered (9) Laceration of scalp: Code(s): S01.01XA - Laceration without foreign body of scalp, initial encounter Status: Acute Assessment and Plan: As above (10) Closed head injury: Code(s): S09.90XA - Unspecified injury of head, initial encounter Status: Acute Assessment and Plan: As above Plan Acute encephalopathy on admission. Possible due to CO2 retention and brain concussion due to the fall. Patient is more awake and alert. CT shows no fracture or acute intracranial issue. Neuro check DVT prophylaxis - Lovenox Code status - DNR Subjective Date/time seen: 01/31/24 15:24 Interval history: 83yo female with chronic respiratory failure, COPD and AFib here for fall and found to have respiratory failure. Wore the mask again last night. No CP. Room spinning dizziness with standing but better when she sat. Exam Narrative: AF 97.9 112/54 85 20 100%
--- NOTE | 2024-01-31 15:27 | PCRCNOTE ---
[facility] SET UP WITH [facility] PAPERWORK FAXED. PT TO GO TO [facility] UPON DISCHARGE HERE. NIV TO BE SET UP AT HOME AFTER PT DISCHARGED FROM [facility]
--- NOTE | 2024-01-31 22:58 | PC.NURSE ---
This patient, Lyndsey Jensen, was transferred to [[facility] ] on 01/31/24 at 2245. Personal belongings sent with patient. Report given to [ ]. Appropriate documentation sent with patient.
[2024-02-01] VITALS (17 sets, daily range): BP systolic 128–150; BP diastolic 55–68; PULSE 65–88; RESP 18–30; TEMP 36.6–36.8; O2SAT 96–100
--- NOTE | 2024-02-01 | ECHO_ITS ---
Patient Info Name: Lyndsey Jensen Age: 83 years : 1940 Gender: Female Ht: 61 in Wt: 145 lbs BSA: 1.70 m2 HR: 88 bpm BP: 150 / 57 mmHg Technical Quality: Poor Exam Date: 02/01/2024 10:08 AM Exam Location: Echo Lab Patient Status: Inpatient Admit Date: 01/29/2024 Staff Ordering Physician: Elian Ramos MD [employer] Machine: Alis Diego RDCS Attending Provider: Juan J Marquez MD Exam Type: CA echo doppler color flow Study Info Indications - chest pain, abn ekg Complete two-dimensional, color flow and Doppler transthoracic echocardiogram is performed. Reason for Poor Study: poor echocardiographic windows Summary 1. Complete two-dimensional, color flow and Doppler transthoracic echocardiogram is performed. 2. Left ventricular chamber dimension is normal. 3. Left ventricular systolic function is normal, estimated at 60-65%. 4. The left ventricular diastolic function is grade I diastolic dysfunction. 5. E/e' 13 is mildly elevated. 6. The mitral valve has moderately calcified annulus. 7. No pulmonary hypertension, estimated pulmonary arterial systolic pressure is 29 mmHg. Left Ventricle E/e' 13 is mildly elevated. Left ventricular chamber dimension is normal. Left ventricular systolic function is normal, estimated at 60-65%. The left ventricular diastolic function is grade I diastolic dysfunction. Right Ventricle Right ventricular systolic function is normal and with normal TAPSE 2.1 cm. Right ventricular chamber dimension is normal. Left Atria Left atrial chamber dimension is normal. Right Atria Right atrial chamber dimension is normal. Aortic Valve The aortic valve is trileaflet. There is no aortic valve stenosis. There is no aortic valve regurgitation. Pulmonic Valve There is no pulmonic regurgitation. Mitral Valve The mitral valve has moderately calcified annulus. There is no mitral valve stenosis. There is no mitral valve regurgitation. Tricuspid Valve There is no tricuspid valve regurgitation. No pulmonary hypertension, estimated pulmonary arterial systolic pressure is 29 mmHg. Pericardium/Pleural There is no pericardial effusion. Inferior Vena Cava Normal inferior vena cava with >50% collapse upon inspiration consistent with normal right atrial pressure, 5 mmHg. Aorta The aortic root size at the sinus of Valsalva is normal. Left Ventricular Outflow Tract Name Value Normal LVOT 2D LVOT Diameter 2.0 cm LVOT Doppler LVOT Peak Gradient 12 mmHg LVOT Mean Gradient 7 mmHg LVOT VTI 32 cm LVOT VTI/AV VTI Ratio 1.1 LVOT Stroke Volume 99 ml LVOT CO 8.3 l/min LVOT CI 4.9 l/min/m2 Pulmonic Valve Name Value Normal PV Doppler PV Peak Gradient 9 mmHg Mitral Valve
[2024-02-01] MEDS: ALBUTEROL SULFATE NEB 2.5 MG/3 ML INH INHALATION ×4 (01:05→22:00)
[2024-02-01] MEDS: UMECLIDINIUM/VILANTEROL 62.5-25 MCG ELLIPTA 1 PUFF INHALATION (08:05)
--- NOTE | 2024-02-01 08:23 | ECG_ITS ---
Test Date: 2024-02-01 08:35:05 Measurements Intervals [place] Rate: 79 P: 76 AL: 179 QRS: 166 QRSD: 121 T: 35 QT: 372 QTc: 429 Interpretive Statements SINUS RHYTHM WITH SINUS ARRHYTHMIA LIMB LEAD REVERSAL LEFT BUNDLE BRANCH BLOCK BASELINE ARTIFACT- I, II, V3 ABNORMAL ECG BASELINE WANDER- I, II, V3 Compared to ECG 01/29/2024 02:04:48 LEFT BUNDLE BRANCH BLOCK NOW PRESENT Electronically Signed On 02-01-2024 15:57:52 CDT by Dex Scherer D.O.
--- NOTE | 2024-02-01 09:34 | PM.IMPN ---
Progress Note: A&P Assessment and Plan (1) Chest pain: Code(s): R07.9 - Chest pain, unspecified Status: Acute Assessment and Plan: Patient with acute onset chest pain at rest. Not associated with food and not on exertion. Stat EKG showing QS changes in the high lateral leads and T wave changes in the lateral leads compared to admisison EKG. Patient was here for a fall so no Troponin checked on admission. Concern for cardiac etiology. Consider related to GB disease as well if workup negative. Check serial Troponin and baseline labs. Check CXR. Check Echo Start ASA. Add tele. Cariology consult if any concerning findings on workup. (2) Acute and chronic respiratory failure with hypercapnia: Code(s): J96.22 - Acute and chronic respiratory failure with hypercapnia Status: Acute Assessment and Plan: Patient found to have acute on chronic respiratory failure from COPD exacerbation. ABG on admission showing 7.35/70/74 on BiPAP. Chest x-ray showing COPD and CMG. Chest CT shows mild to moderate emphysema and no PE. WBC 19K. PCT 0.4. UA clear. BCx NGTD. Patient started on BiPAP. Soul-Medrol, DuoNebs and Levaquin started. Pulmonary consulted and appreciate their input. Weaned BiPAP to night, naps and prn use. Back down to baseline O2 requirement at 2L. Speech therapy assessed patient and there were no concerns. Weaned to oral Prednisone (3) SIRS (systemic inflammatory response syndrome): Code(s): R65.10 - Systemic inflammatory response syndrome (SIRS) of non-infectious origin without acute organ dysfunction Status: Acute Assessment and Plan: Noted with leukocytosis, acute resp failure and tachypnea. Related to above. No PNA or UTI. Levaquin for acute bronchitis. (4) Fall: Code(s): W19.XXXA - Unspecified fall, initial encounter Status: Acute Assessment and Plan: Patient brought in after she fell out of bed. She sustained head injury with posterior scalp hematoma and small laceration that was closed with dermabond. Cervical spine CT showing no fracture or subluxation, anterior fusion of C3-C6 and moderate to advanced spondylosis. Lumber spine CT showing degenerative changes in the lumbar spine with probably moderate-sever central canal stenosis at L4-5. CT head showing no acute findings. 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 Continue PT/OT (5) COPD exacerbation: Code(s): J44.1 - Chronic obstructive pulmonary disease with (acute) exacerbation Status: Acute Assessment and Plan: As above Continue home medication of Anoro Ellipta and Daliresp (6) Gallstone: Code(s): K80.20 - Calculus of gallbladder without cholecystitis without obstruction Status: Acute Assessment and Plan: There is a 18mm gallstone in the gallbladder neck. No symptoms. Continue low fat diet (7) Chronic anemia: Code(s): D64.9 - Anemia, unspecified Status: Acute Assessment and Plan: Macrocytic anemia noted. Hgb low but stable. Iron studies consistent with anemia of chronic disease No liver or spleen abnormalities by imaging. B12/folate normal Ferrous gluconate resumed (8) Paroxysmal A-fib: Code(s): I48.0 - Paroxysmal atrial fibrillation Status: Acute Assessment and Plan: Patient with pAFib. Not on rate controlling agents of anticoagulation. No evidence of recurrence by tele. (9) Spinal stenosis: Code(s): M48.00 - Spinal stenosis, site unspecified Status: Acute Assessment and Plan: Noted by Lumbar CT at L4-5. PTOT ordered (10) Laceration of scalp: Code(s): S01.01XA - Laceration without foreign body of scalp, initial encounter Status: Acute Assessment and Plan: As above (11) Closed head injury: Code(s): S09.90XA - Unspecified injury of head, initial encounter Status: Acute
[2024-02-01] MEDS: allopurinoL 100 MG TABLET PO (09:43)
[2024-02-01] MEDS: predniSONE 20 MG, predniSONE 10 MG 30 MG PO (09:43)
[2024-02-01] MEDS: DULoxetine HCL 30 MG CAPSULE.DR PO (09:43)
[2024-02-01] MEDS: FERROUS GLUCONATE 324 MG TABLET PO (09:43)
[2024-02-01] MEDS: FUROSEMIDE 20 MG TABLET PO (09:44)
[2024-02-01] MEDS: ENOXAPARIN 40 MG/0.4 ML SYRINGE SUB-Q (09:48)
[2024-02-01] MEDS: ASPIRIN 81 MG CHEWABLE TABLET 324 MG PO (09:54)
[2024-02-01 10:35] LABS: Basophils Percent Auto 0.2 % (0.2-1.2); Eosinophils Absolute Auto 0.2 K/mm3 (0-0.3); Eosinophils Percent Auto 1.8 % (0-4.4); Hematocrit 28.8 % (37.0-47.0); Hemoglobin 8.7 g/dL (12.0-15.0); Immature Granulocyte Absolute 0.14 K/mm3 (0.00-0.031); Immature Granulocyte Percent A 1.3 % (0-0.5); Lymphocytes Absolute Auto 2.03 K/mm3 (0.9-3.2); Lymphocytes Percent Auto 18.8 % (18.3-44.2); Mean Corpuscular HGB Conc 30.2 g/dl (32-36); Mean Corpuscular Hemoglobin 32.1 pg (26-34); Mean Corpuscular Volume 106.3 fl (80-100); Monocytes Absolute Auto 1.4 K/mm3 (0.1-0.6); Monocytes Percent Auto 12.8 % (2.6-8.5); Neutrophils Absolute Auto 7.1 K/mm3 (1.3-6.7); Neutrophils Percent Auto 65.1 % (45.5-73.1); Platelet Count Result 219 k/mm3 (150-375); Red Blood Count 2.71 M/mm3 (4.2-5.4); Red Cell Distribution Width 15.4 % (11.5-14.5); White Blood Count 10.8 K/mm3 (4.5-10.0)
[2024-02-01 10:46] LABS: Alanine Aminotransferase 23 U/L (6-35); Albumin Level 3.3 g/dL (3.5-5.1); Alkaline Phosphatase 39 U/L (38-126); Anion Gap 4 mmol/L (4-12); Aspartate Amino Transferase 28 U/L (14-36); Bilirubin,Total 0.4 mg/dL (0.2-1.3); Blood Urea Nitrogen 19 mg/dL (7-17); Calcium 8.8 mg/dL (8.4-10.2); Carbon Dioxide 37 mmol/L (22-30); Chloride 95 mmol/L (98-107); Estimated CRCL calculation 39 ml/min; Estimated Glomerular Filt Rate 60; Glucose 106 mg/dL (65-110); Magnesium 2.3 mg/dL (1.6-2.3); Phosphorus 2.9 mg/dL (2.5-4.5); Potassium 3.7 mmol/L (3.4-5.0); Sodium 136 mmol/L (137-145)
--- NOTE | 2024-02-01 10:51 | PM.PNPUL ---
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 The etiology of the COPD exacerbation is not quite clear. The patient has responded to treatment with IV steroids and BiPAP support. She has been tolerating supplemental oxygen via nasal cannula during the day and BiPAP support at night. On physical exam, she has distant breath sounds but no wheezing. Given her advanced COPD and hypercapnic hypoxemic respiratory failure, for which she is only receiving supplemental oxygen and not BiPAP support, the patient may benefit from home ventilatory support via a home ventilator. This approach could potentially offer several advantages over BiPAP, as it is designed to provide more tailored support for patients with chronic respiratory failure, and can also help improve patient comfort and minimize the rate of hospitalizations due to exacerbations. Plan: Out of bed to chair Continue the current regimen of short-acting bronchodilators, oral steroids, and DVT prophylaxis. Await approval of home ventilator. Continue to follow the patient along with you. (3) Paroxysmal A-fib: Code(s): I48.0 - Paroxysmal atrial fibrillation Status: Acute Subjective Date/time seen: 02/01/24 10:51 Interval history: Patient has no new respiratory symptoms. Use BiPAP support last night. Currently on just supplemental oxygen. No cough or wheezing. Review of Systems Review of Systems: All systems reviewed & are unremarkable except as noted in HPI and below ( HPI and below) Exam Narrative: GENERAL APPEARANCE: Well developed, well nourished, alert and cooperative, and appears to be in no acute distress while on supplemental oxygen via nasal cannula SKIN: Inspection of the skin reveals no rashes, ulcerations or petechiae. HEENT: Sclerae anicteric and conjunctivae pink and moist. Extraocular movements were intact and pupils were equal, round, and reactive to light. The oral mucosa, hard and soft palate, tongue and posterior pharynx were normal. NECK: Supple. There was no thyroid enlargement, and no tenderness, or masses were felt. CHEST: Normal AP diameter and normal contour without any kyphoscoliosis. LUNGS: Somewhat distant breath sounds no wheezing CARDIAC: There was a regular rate and rhythm without any murmurs, gallops, rubs. ABDOMEN: Soft and nontender with normal bowel sounds. There was no organomegaly. LYMPH NODES: No lymphadenopathy was appreciated in the neck. EXTREMITIES: No cyanosis, clubbing or edema. NEUROLOGIC: Alert and oriented x 3. Normal affect. Objective Data Vital Signs Vital Signs: Vital Signs - 24 hr 01/31/24 11:24 01/31/24 11:53 01/31/24 12:00 Temperature 36.6 C Pulse Rate 89 103 H Respiratory Rate 20 Blood Pressure 112/54 L Pulse Oximetry 100 Oxygen Delivery Nasal Cannula Oxygen Flow Rate 2 01/31/24 13:48 01/31/24 13:57 01/31/24 14:00 Temperature Pulse Rate 86 85 85 Respiratory Rate 20 20 Blood Pressure Pulse Oximetry Oxygen Delivery Oxygen Flow Rate 01/31/24 15:24 01/31/24 16:00 01/31/24 20:13 Temperature 36.6 C Pulse Rate 91 92 Respiratory Rate 20 Blood Pressure 126/66 Pulse Oximetry 100 100 Oxygen Delivery Nasal Cannula Oxygen Flow Rate 2 01/31/24 20:14 01/31/24 20:00 01/31/24 20:24 Temperature Pulse Rate 82 86 Respiratory Rate 20 20 Blood Pressure Pulse Oximetry 100 Oxygen Delivery Nasal Cannula Oxygen Flow Rate 2 01/31/24 23:07 01/31/24 20:00
[2024-02-01 10:57] LABS: Troponin I 0.018 ng/mL (0.000-0.034)
[2024-02-01 11:33] LABS: Hypochromasia 1+; Macrocytosis 1+ (NORMAL); Platelet Estimate Adequate (Adequate); Schistocytes None Seen
[2024-02-01] MEDS: LORazepam (*CRX) 1 MG TABLET PO (12:07)
[2024-02-01] MEDS: ROFLUMILAST 250 MCG TABLET PO (12:09)
[2024-02-01 14:24] LABS: Troponin I 0.018 ng/mL (0.000-0.034)
[2024-02-01 17:23] LABS: Troponin I 0.012 ng/mL (0.000-0.034)
[2024-02-01] MEDS: ACETAMINOPHEN 500 MG TABLET 1000 MG PO (22:37)
[2024-02-02] VITALS (18 sets, daily range): BP systolic 117–139; BP diastolic 48–84; PULSE 68–113; RESP 18–30; TEMP 36.4–37.1; O2SAT 92–100
[2024-02-02] MEDS: ALBUTEROL SULFATE NEB 2.5 MG/3 ML INH INHALATION ×4 (03:14→19:50)
[2024-02-02 06:58] LABS: Albumin Level 3.7 g/dL (3.5-5.1); Anion Gap 6 mmol/L (4-12); Blood Urea Nitrogen 17 mg/dL (7-17); Calcium 8.8 mg/dL (8.4-10.2); Carbon Dioxide 37 mmol/L (22-30); Chloride 93 mmol/L (98-107); Estimated CRCL calculation 39 ml/min; Estimated Glomerular Filt Rate 60; Glucose 96 mg/dL (65-110); Magnesium 2.3 mg/dL (1.6-2.3); Phosphorus 3.4 mg/dL (2.5-4.5); Potassium 3.5 mmol/L (3.4-5.0); Sodium 136 mmol/L (137-145)
[2024-02-02] MEDS: UMECLIDINIUM/VILANTEROL 62.5-25 MCG ELLIPTA 1 PUFF INHALATION (07:17)
[2024-02-02] MEDS: FUROSEMIDE INJ 40 MG/4 ML VIAL IV PUSH (08:27)
[2024-02-02] MEDS: ASPIRIN 81 MG CHEWABLE TABLET PO (08:27)
[2024-02-02] MEDS: allopurinoL 100 MG TABLET PO (08:27)
[2024-02-02] MEDS: FERROUS GLUCONATE 324 MG TABLET PO (08:27)
[2024-02-02] MEDS: DULoxetine HCL 30 MG CAPSULE.DR PO (08:27)
[2024-02-02] MEDS: predniSONE 20 MG, predniSONE 10 MG 30 MG PO (08:27)
[2024-02-02] MEDS: ROFLUMILAST 250 MCG TABLET PO (08:27)
[2024-02-02] MEDS: ENOXAPARIN 40 MG/0.4 ML SYRINGE SUB-Q (08:28)
[2024-02-02] MEDS: levoFLOXacin 750 MG/D5W 150 ML 750 MG/150 ML BAG 100 MG IVPB (08:28)
--- NOTE | 2024-02-02 10:19 | PM.PNPUL ---
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 The etiology of the COPD exacerbation is not quite clear. The patient has responded to treatment with IV steroids and BiPAP support. She has been tolerating supplemental oxygen via nasal cannula during the day and BiPAP support at night. On physical exam, she has distant breath sounds but no wheezing. Given her advanced COPD and hypercapnic hypoxemic respiratory failure, for which she is only receiving supplemental oxygen and not BiPAP support, the patient may benefit from home ventilatory support via a home ventilator. This approach could potentially offer several advantages over BiPAP, as it is designed to provide more tailored support for patients with chronic respiratory failure, and can also help improve patient comfort and minimize the rate of hospitalizations due to exacerbations. Plan: Out of bed to chair Continue the current regimen of short-acting bronchodilators, oral steroids, and DVT prophylaxis. Await approval of home ventilator. Continue to follow the patient along with you. (3) Paroxysmal A-fib: Code(s): I48.0 - Paroxysmal atrial fibrillation Status: Acute Subjective Date/time seen: 02/02/24 10:19 Interval history: Patient has no new respiratory complaints. Spends most of the day in bed. Remains on supplemental oxygen via nasal cannula Review of Systems Review of Systems: All systems reviewed & are unremarkable except as noted in HPI and below (HPI and below) Exam Narrative: GENERAL APPEARANCE: Well developed, well nourished, alert and cooperative, and appears to be in no acute distress while on supplemental oxygen via nasal cannula SKIN: Inspection of the skin reveals no rashes, ulcerations or petechiae. HEENT: Sclerae anicteric and conjunctivae pink and moist. Extraocular movements were intact and pupils were equal, round, and reactive to light. The oral mucosa, hard and soft palate, tongue and posterior pharynx were normal. NECK: Supple. There was no thyroid enlargement, and no tenderness, or masses were felt. CHEST: Normal AP diameter and normal contour without any kyphoscoliosis. LUNGS: Somewhat distant breath sounds no wheezing CARDIAC: There was a regular rate and rhythm without any murmurs, gallops, rubs. ABDOMEN: Soft and nontender with normal bowel sounds. There was no organomegaly. LYMPH NODES: No lymphadenopathy was appreciated in the neck. EXTREMITIES: No cyanosis, clubbing or edema. NEUROLOGIC: Alert and oriented x 3. Normal affect. Objective Data Vital Signs Vital Signs: Vital Signs - 24 hr 02/01/24 14:10 02/01/24 14:28 02/01/24 14:22 Temperature 36.7 C Pulse Rate 83 65 77 Respiratory Rate 20 22 H 22 H Blood Pressure 128/55 L Pulse Oximetry 100 Oxygen Delivery Oxygen Flow Rate 02/01/24 12:00 02/01/24 16:00 02/01/24 10:40 Temperature Pulse Rate 84 84 85 Respiratory Rate Blood Pressure Pulse Oximetry Oxygen Delivery Oxygen Flow Rate 02/01/24 21:00 02/01/24 22:00 02/01/24 22:08 Temperature 36.6 C Pulse Rate 77 72 70 Respiratory Rate 18 22 H 20 Blood Pressure 144/64 H Pulse Oximetry 99 Oxygen Delivery Oxygen Flow Rate 02/01/24 22:08 02/01/24 20:00 02/01/24 20:00 Temperature Pulse Rate 72 87 Respiratory Rate 30 H Blood Pressure Pulse Oximetry 98 98 Oxygen Delivery BiPAP Nasal Cannula Oxygen Flow Rate 2 02/02/24 00:00 02/02/24 03:14 02/02/24 03:17 Temperature Pu
--- NOTE | 2024-02-02 11:29 | PM.IMPN ---
Progress Note: A&P Assessment and Plan (1) Chest pain: Code(s): R07.9 - Chest pain, unspecified Status: Acute Assessment and Plan: Patient with acute onset chest pain at rest. Not associated with food and not on exertion. Stat EKG showing nml sinus rhythm with sinus arrhythmia and limb lead reversal. Left BBB. No significant change but now patient with BBB (QRS 118 -> 121). Patient was here for a fall so no Troponin checked on admission. Consider cardiac vs GB disease vs musculoskeletal. Troponin negative x 3. CXR showing mild reticular opacities bibasilar. Echo showing normal LV systolic function with EF 60-65% and grade I diastolic dysfxn. No recurrence of chest pain. Continue ASA. Continue to monitor on tele. Lasix IV once. (2) Acute and chronic respiratory failure with hypercapnia: Code(s): J96.22 - Acute and chronic respiratory failure with hypercapnia Status: Acute Assessment and Plan: Patient found to have acute on chronic respiratory failure from COPD exacerbation. ABG on admission showing 7.35/70/74 on BiPAP. Chest x-ray showing COPD and CMG. Chest CT shows mild to moderate emphysema and no PE. WBC 19K. PCT 0.4. UA clear. BCx NGTD. Patient started on BiPAP. Soul-Medrol, DuoNebs and Levaquin started. Pulmonary consulted and appreciate their input. Weaned BiPAP to night, naps and prn use. Back down to baseline O2 requirement at 2L. Speech therapy assessed patient and there were no concerns. Weaned to oral Prednisone (3) SIRS (systemic inflammatory response syndrome): Code(s): R65.10 - Systemic inflammatory response syndrome (SIRS) of non-infectious origin without acute organ dysfunction Status: Acute Assessment and Plan: Noted with leukocytosis, acute resp failure and tachypnea. Related to above. No PNA or UTI. Levaquin for acute bronchitis. (4) Fall: Code(s): W19.XXXA - Unspecified fall, initial encounter Status: Acute Assessment and Plan: Patient brought in after she fell out of bed. She sustained head injury with posterior scalp hematoma and small laceration that was closed with dermabond. Cervical spine CT showing no fracture or subluxation, anterior fusion of C3-C6 and moderate to advanced spondylosis. Lumber spine CT showing degenerative changes in the lumbar spine with probably moderate-sever central canal stenosis at L4-5. CT head showing no acute findings. 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 Continue PT/OT (5) COPD exacerbation: Code(s): J44.1 - Chronic obstructive pulmonary disease with (acute) exacerbation Status: Acute Assessment and Plan: As above Continue home medication of Anoro Ellipta and Daliresp (6) Gallstone: Code(s): K80.20 - Calculus of gallbladder without cholecystitis without obstruction Status: Acute Assessment and Plan: There is a 18mm gallstone in the gallbladder neck. No symptoms. Continue low fat diet (7) Chronic anemia: Code(s): D64.9 - Anemia, unspecified Status: Acute Assessment and Plan: Macrocytic anemia noted. Hgb low but stable. Iron studies consistent with anemia of chronic disease No liver or spleen abnormalities by imaging. B12/folate normal Ferrous gluconate resumed (8) Paroxysmal A-fib: Code(s): I48.0 - Paroxysmal atrial fibrillation Status: Acute Assessment and Plan: Patient with pAFib. Not on rate controlling agents of anticoagulation. No evidence of recurrence by tele. (9) Spinal stenosis: Code(s): M48.00 - Spinal stenosis, site unspecified Status: Acute Assessment and Plan: Noted by Lumbar CT at L4-5. PTOT ordered (10) Laceration of scalp: Code(s): S01.01XA - Laceration without foreign body of scalp, initial encounter Status: Acute Assessment and Plan: As above (11) Closed head in
[2024-02-02] MEDS: LORazepam (*CRX) 1 MG TABLET PO ×2 (12:05→20:52)
[2024-02-02] MEDS: ACETAMINOPHEN 325 MG TABLET 650 MG PO (20:52)
[2024-02-03] VITALS (18 sets, daily range): BP systolic 114–121; BP diastolic 50–73; PULSE 62–109; RESP 17–25; TEMP 36.2–36.8; O2SAT 94–100
[2024-02-03] MEDS: ALBUTEROL SULFATE NEB 2.5 MG/3 ML INH INHALATION ×4 (02:52→20:58)
[2024-02-03 06:42] LABS: Blood Urea Nitrogen 17 mg/dL (7-17); Calcium 8.6 mg/dL (8.4-10.2); Carbon Dioxide > 40 mmol/L (22-30); Chloride 92 mmol/L (98-107); Estimated CRCL calculation 39 ml/min; Estimated Glomerular Filt Rate 60; Glucose 79 mg/dL (65-110); Potassium 3.3 mmol/L (3.4-5.0); Sodium 136 mmol/L (137-145)
[2024-02-03] MEDS: predniSONE 20 MG, predniSONE 10 MG 30 MG PO (07:48)
[2024-02-03] MEDS: ASPIRIN 81 MG CHEWABLE TABLET PO (07:48)
[2024-02-03] MEDS: DULoxetine HCL 30 MG CAPSULE.DR PO (07:48)
[2024-02-03] MEDS: POTASSIUM CHLORIDE 20 MEQ ER TABLET 40 MEQ PO (07:48)
[2024-02-03] MEDS: allopurinoL 100 MG TABLET PO (07:48)
[2024-02-03] MEDS: FERROUS GLUCONATE 324 MG TABLET PO (07:48)
[2024-02-03] MEDS: FUROSEMIDE 20 MG TABLET PO (07:48)
[2024-02-03] MEDS: SENNOSIDES 8.6 MG TABLET PO (07:48)
[2024-02-03] MEDS: ROFLUMILAST 250 MCG TABLET PO (07:49)
[2024-02-03] MEDS: ENOXAPARIN 40 MG/0.4 ML SYRINGE SUB-Q (08:01)
[2024-02-03] MEDS: UMECLIDINIUM/VILANTEROL 62.5-25 MCG ELLIPTA 1 PUFF INHALATION (09:02)
--- NOTE | 2024-02-03 12:23 | PM.PNPUL ---
Progress Note: A&P Assessment and Plan (1) COPD exacerbation: Code(s): J44.1 - Chronic obstructive pulmonary disease with (acute) exacerbation Status: Acute Assessment and Plan: 02/03/24: Patient has no wheezing and says she is breathing back at her normal while at rest. plan: Patient to be discharged on Anoro Ellipta 62.5-25 at 1 puff q.day and rescue albuterol. Continue Daliresp 250 mg p.o. q.day. today is day 6 of steroids and these can be discontinued. Oxygen with a goal of saturation 90-94% with rest and with activity per [facility] protocol. Plan: from a pulmonary perspective patient is ready to be discharged to [facility] on these pulmonary medications: Anoro Ellipta 62.5-25 at 1 puff q.day. Rescue albuterol 2 puffs q.4 hours p.r.n. shortness of breath or wheezing. Daliresp 250 mg p.o. q.day. Oxygen at rest and with activity per facilities protocol. Currently at rest on 1 L nasal cannula saturations 95%. When she naps or sleeps at [facility] BiPAP 16, pressures 12/6 and 30% FiO2. On discharge home through [facility] noninvasive ventilation with AVAPS AE mode with rate of auto, tidal volume 450, EPAP minimum 4, EPAP maximum 10, pressure support minimum 6, pressure support maximum 20, maximum pressure 30 and 3 L bleed in. Follow-up in the Pulmonary Clinic in 4 weeks. I have informed our maintenance scheduler. Discussed with Dr. Ramos, will sign off. Call with questions. 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 The etiology of the COPD exacerbation is not quite clear. The patient has responded to treatment with IV steroids and BiPAP support. She has been tolerating supplemental oxygen via nasal cannula during the day and BiPAP support at night. On physical exam, she has distant breath sounds but no wheezing. On 01/29 patient had a blood gas on hospital BiPAP 16, 12/6 and 30% FiO2 with a pH of 7.51/41/79. this represents adequate ventilation and oxygenation. Given her advanced COPD and hypercapnic hypoxemic respiratory failure, for which she is only receiving supplemental oxygen and not BiPAP support, the patient may benefit from home ventilatory support via a home ventilator. This approach could potentially offer several advantages over BiPAP, as it is designed to provide more tailored support for patients with chronic respiratory failure, and can also help improve patient comfort and minimize the rate of hospitalizations due to exacerbations. 01/31/24: Home noninvasive ventilation orders were sent to [facility] for AVAPS AE mode with rate of auto, tidal volume 450, EPAP minimum 4, EPAP maximum 10, pressure support minimum 6, pressure support maximum 20, maximum pressure 30 and 3 L bleed in 02/02/24: Plan: Out of bed to chair Continue the current regimen of short-acting bronchodilators, oral steroids, and DVT prophylaxis. Await approval of home ventilator. Continue to follow the patient along with you. 02/03/24: overall the patient has improved since admission. Patient states she is breathing at her baseline at rest. She denies cough or phlegm production. She is afebrile. Creatinine 0.9. When I enter the room she was on 2 L nasal cannula saturations 100%. I decreased her to 1 L and her saturations were 95%. Patient wore the hospital BiPAP rate of 16, pressures 12/6 and 30% FiO2. She said she is doing better with the BiPAP at night. Plan: Patient to wear BiPAP at [facility] in we have set her up with a home noninvasive ventilator on discharge from [facility]. Subjective Date/time seen: 02/03/24 12:23 Interval history: 02/02/24: Patient has
[2024-02-03] MEDS: LORazepam (*CRX) 1 MG TABLET PO ×2 (13:00→19:57)
--- NOTE | 2024-02-03 17:18 | PM.IMPN ---
Progress Note: A&P Assessment and Plan (1) Chest pain: Code(s): R07.9 - Chest pain, unspecified Status: Acute Assessment and Plan: Patient with acute onset chest pain at rest. Not associated with food and not on exertion. Stat EKG showing nml sinus rhythm with sinus arrhythmia and limb lead reversal. Left BBB. No significant change but now patient with BBB (QRS 118 -> 121). Troponin negative x 3. CXR showing mild reticular opacities bibasilar. Echo showing normal LV systolic function with EF 60-65% and grade I diastolic dysfxn. No recurrence of chest pain. probably anxiety or from her chronic lung disease. Continue ASA. Continue to monitor on tele. (2) Acute and chronic respiratory failure with hypercapnia: Code(s): J96.22 - Acute and chronic respiratory failure with hypercapnia Status: Acute Assessment and Plan: Patient found to have acute on chronic respiratory failure from COPD exacerbation. ABG on admission showing 7.35/70/74 on BiPAP. Chest x-ray showing COPD and CMG. Chest CT shows mild to moderate emphysema and no PE. WBC 19K. PCT 0.4. UA clear. BCx NGTD. Patient started on BiPAP. Soul-Medrol, DuoNebs and Levaquin started. Pulmonary consulted and appreciate their input. Weaned BiPAP to night, naps and prn use. Back down to baseline O2 requirement at 2L. Speech therapy assessed patient and there were no concerns. Weaned to oral Prednisone Discharge back to SNF when facility can accept her back. (3) SIRS (systemic inflammatory response syndrome): Code(s): R65.10 - Systemic inflammatory response syndrome (SIRS) of non-infectious origin without acute organ dysfunction Status: Acute Assessment and Plan: Noted with leukocytosis, acute resp failure and tachypnea. Related to above. No PNA or UTI. Levaquin for acute bronchitis. (4) Fall: Code(s): W19.XXXA - Unspecified fall, initial encounter Status: Acute Assessment and Plan: Patient brought in after she fell out of bed. She sustained head injury with posterior scalp hematoma and small laceration that was closed with dermabond. Cervical spine CT showing no fracture or subluxation, anterior fusion of C3-C6 and moderate to advanced spondylosis. Lumber spine CT showing degenerative changes in the lumbar spine with probably moderate-sever central canal stenosis at L4-5. CT head showing no acute findings. 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 Continue PT/OT (5) COPD exacerbation: Code(s): J44.1 - Chronic obstructive pulmonary disease with (acute) exacerbation Status: Acute Assessment and Plan: As above Continue home medication of Anoro Ellipta and Daliresp (6) Gallstone: Code(s): K80.20 - Calculus of gallbladder without cholecystitis without obstruction Status: Acute Assessment and Plan: There is a 18mm gallstone in the gallbladder neck. No symptoms. Continue low fat diet (7) Chronic anemia: Code(s): D64.9 - Anemia, unspecified Status: Acute Assessment and Plan: Macrocytic anemia noted. Hgb low but stable. Iron studies consistent with anemia of chronic disease No liver or spleen abnormalities by imaging. B12/folate normal Ferrous gluconate resumed (8) Paroxysmal A-fib: Code(s): I48.0 - Paroxysmal atrial fibrillation Status: Acute Assessment and Plan: Patient with pAFib. Not on rate controlling agents of anticoagulation. No evidence of recurrence by tele. (9) Spinal stenosis: Code(s): M48.00 - Spinal stenosis, site unspecified Status: Acute Assessment and Plan: Noted by Lumbar CT at L4-5. PTOT ordered (10) Laceration of scalp: Code(s): S01.01XA - Laceration without foreign body of scalp, initial encounter Status: Acute Assessment and Plan: As above (11) Closed head injury: Code(s): S
[2024-02-03] MEDS: ACETAMINOPHEN 325 MG TABLET 650 MG PO (19:57)
[2024-02-04] VITALS (10 sets, daily range): PULSE 79–86; RESP 16–25; O2SAT 98
[2024-02-04] MEDS: ALBUTEROL SULFATE NEB 2.5 MG/3 ML INH INHALATION ×3 (03:00→13:23)
[2024-02-04 06:46] LABS: Blood Urea Nitrogen 18 mg/dL (7-17); Carbon Dioxide > 40 mmol/L (22-30); Chloride 93 mmol/L (98-107); Estimated CRCL calculation 39 ml/min; Potassium 3.6 mmol/L (3.4-5.0); Sodium 135 mmol/L (137-145)
[2024-02-04 06:47] LABS: Calcium 8.8 mg/dL (8.4-10.2); Estimated Glomerular Filt Rate 60; Glucose 70 mg/dL (65-110); Magnesium 2.2 mg/dL (1.6-2.3)
[2024-02-04] MEDS: UMECLIDINIUM/VILANTEROL 62.5-25 MCG ELLIPTA 1 PUFF INHALATION (07:21)
[2024-02-04] MEDS: allopurinoL 100 MG TABLET PO (08:48)
[2024-02-04] MEDS: ROFLUMILAST 250 MCG TABLET PO (08:48)
[2024-02-04] MEDS: ENOXAPARIN 40 MG/0.4 ML SYRINGE SUB-Q (08:48)
[2024-02-04] MEDS: FERROUS GLUCONATE 324 MG TABLET PO (08:48)
[2024-02-04] MEDS: predniSONE 20 MG, predniSONE 10 MG 30 MG PO (08:48)
[2024-02-04] MEDS: DULoxetine HCL 30 MG CAPSULE.DR PO (08:48)
[2024-02-04] MEDS: ASPIRIN 81 MG CHEWABLE TABLET PO (08:48)
[2024-02-04] MEDS: FUROSEMIDE 20 MG TABLET PO (08:48)
[2024-02-04] MEDS: levoFLOXacin 750 MG TABLET PO (08:48)
[2024-02-04] MEDS: LORazepam (*CRX) 1 MG TABLET PO (12:26)
--- NOTE | 2024-02-04 13:22 | PM.DS ---
DS: Admitting Diagnosis Discharge Date 02/04/24 Admitting Diagnosis Fall DS: Discharge Diagnosis Discharge Diagnosis (1) Chest pain: Code(s): R07.9 - Chest pain, unspecified Status: Acute (2) Acute and chronic respiratory failure with hypercapnia: Code(s): J96.22 - Acute and chronic respiratory failure with hypercapnia Status: Acute (3) SIRS (systemic inflammatory response syndrome): Code(s): R65.10 - Systemic inflammatory response syndrome (SIRS) of non-infectious origin without acute organ dysfunction Status: Acute (4) Fall: Code(s): W19.XXXA - Unspecified fall, initial encounter Status: Acute (5) COPD exacerbation: Code(s): J44.1 - Chronic obstructive pulmonary disease with (acute) exacerbation Status: Acute (6) Gallstone: Code(s): K80.20 - Calculus of gallbladder without cholecystitis without obstruction Status: Acute (7) Chronic anemia: Code(s): D64.9 - Anemia, unspecified Status: Acute (8) Paroxysmal A-fib: Code(s): I48.0 - Paroxysmal atrial fibrillation Status: Acute (9) Spinal stenosis: Code(s): M48.00 - Spinal stenosis, site unspecified Status: Acute (10) Laceration of scalp: Code(s): S01.01XA - Laceration without foreign body of scalp, initial encounter Status: Acute (11) Closed head injury: Code(s): S09.90XA - Unspecified injury of head, initial encounter Status: Acute DS: Summary Hospital Course Reason for hospitalization: 83yo female with chronic respiratory failure, COPD and AFib here for fall and found to have respiratory failure. Please see H&P for details Hospital Course: The following issues were addressed: (1) Chest Pain: Patient with acute onset chest pain at rest. Not associated with food and not on exertion. Stat EKG showing nml sinus rhythm with sinus arrhythmia and limb lead reversal. Left BBB. No significant change but now patient with BBB (QRS 118 -> 121). Troponin negative x 3. CXR showing mild reticular opacities bibasilar. Echo showing normal LV systolic function with EF 60-65% and grade I diastolic dysfxn. No recurrence of chest pain. probably anxiety or from her chronic lung disease. Tele showed no acute dysrhythmias (2) Acute and chronic respiratory failure with hypercapnia: Patient found to have acute on chronic respiratory failure from COPD exacerbation. ABG on admission showing 7.35/70/74 on BiPAP. Chest x-ray showing COPD and CMG. Chest CT shows mild to moderate emphysema and no PE. WBC 19K. PCT 0.4. UA clear. BCx NGTD. Patient started on BiPAP. Soul-Medrol, DuoNebs and Levaquin started. Pulmonary consulted and appreciate their input. Weaned BiPAP to night, naps and prn use. Back down to baseline O2 requirement at 2L. Speech therapy assessed patient and there were no concerns. Weaned to oral Prednisone (3) SIRS (systemic inflammatory response syndrome): Noted with leukocytosis, acute resp failure and tachypnea. Related to above. No PNA or UTI. Levaquin for acute bronchitis. (4) Fall: Patient brought in after she fell out of bed. She sustained head injury with posterior scalp hematoma and small laceration that was closed with dermabond. Cervical spine CT showing no fracture or subluxation, anterior fusion of C3-C6 and moderate to advanced spondylosis. Lumber spine CT showing degenerative changes in the lumbar spine with probably moderate-severe central canal stenosis at L4-5. CT head showing no acute findings. 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 She worked with PT/OT (5) COPD exacerbation: As above We continued her home medication of Anoro Ellipta and Daliresp (6) Gallstone: There is a 18mm gallstone in the gallbladder neck. No symptoms. Started on low fat diet (7) Chronic anemia: Macrocytic anemia noted. Hgb low but stable. Iron studies consistent with anemia of
[2024-02-04 16:14] LABS: Adenovirus DNA Not Detected (Not Detected); Chlamydophila pneumoniae Not Detected (Not Detected); Coronavirus 229E Not Detected (Not Detected); Coronavirus HKU1 Not Detected (Not Detected); Coronavirus NL63 Not Detected (Not Detected); Coronavirus OC43 Not Detected (Not Detected); Human Metapneumovirus Not Detected (Not Detected); Human Parainfluenza Virus 1 Not Detected (Not Detected); Human Parainfluenza Virus 2 Not Detected (Not Detected); Human Parainfluenza Virus 3 Not Detected (Not Detected); Human Parainfluenza Virus 4 Not Detected (Not Detected); Human RSV B Not Detected (Not Detected); Influenza A Not Detected (Not Detected); Influenza B Not Detected (Not Detected); Mycoplasma pneumoniae Not Detected (Not Detected); Rhinovirus/Enterovirus Not Detected (Not Detected)
--- NOTE | 2024-02-11 10:28 | PC.NURSE ---
Serology panel shows all non-detected. Dr. Richard salcido.
== END 2024-02-04 15:19 | DRG 189 ==
LOC: ANHED 06:30 → ANHIMU 06:31 → ANH3MEDSUR 01-31 22:59
PROVIDERS: Hospitalist; Internal Medicine Pulmonary Disease; Admitting Provider Internal Medicine; Emergency Provider Student in an Organized Health Care Education/Training Program; PCP Family Medicine; Visit Provider Internal Medicine
DX: J96.22 Acute and chronic respiratory failure with hypercapnia (principal); J44.1 Chronic obstructive pulmonary disease with (acute) exacerbation; G93.40 Encephalopathy, unspecified; J43.9 Emphysema, unspecified; I11.0 Hypertensive heart disease with heart failure; I50.9 Heart failure, unspecified; S01.01XA Laceration without foreign body of scalp, initial encounter; W06.XXXA Fall from bed, initial encounter; D64.9 Anemia, unspecified; I48.0 Paroxysmal atrial fibrillation; K80.20 Calculus of gallbladder without cholecystitis without obstruction; M48.061 Spinal stenosis, lumbar region without neurogenic claudication; Z87.891 Personal history of nicotine dependence; Z20.822 Contact with and (suspected) exposure to COVID-19
CPT/HCPCS: 12001; 36415; 36600; 70450; 70553; 71045; 71260; 72125; 72129; 72132; 72170; 73552; 74177; 76705; 80048; 80053; 80069; 81003; 82375; 82607; 82728; 82746; 82805; 82948; 83050; 83540; 83550; 83735; 83880; 84100; 84145; 84484; 85025; 85610; 85730; 87040; 87633; 90471; 90715; 92610; 93005; 93306; 94002; 94003; 94640; 96361; 96374; 96375; 97110; 97116; 97161; 97166; 97530; 97535; 99285; A9270; A9577; G0378; J1170; J1650; J1940; J1956; J2270; J2405; J2919; J7030; J7120; J7512; Q9967